=== PATIENT | male | born 2005 | race Hispanic/Latino ===

== ENCOUNTER 2024-01-16 19:14 | Emergency (ER) | payer OTHER ==
[~2024-01-16] VITALS: Ht 175.3 cm; Wt 71.2 kg
[2024-01-16 19:49] LABS: BASO # 0.1 10^3/uL (0.0-0.2); BASO % 0.5 % (0.0-1.0); EOS # 0.2 10^3/uL (0.0-0.5); EOS % 1.6 % (0.0-3.0); HEMATOCRIT 40.6 % (42.0-52.0); HEMOGLOBIN 13.8 g/dl (13.5-17.5); LYMPH # 2.5 10^3/uL (1.5-5.0); LYMPH % 23.8 % (24.0-44.0); MEAN CORPUSCULAR HEMOGLOBIN 29.4 pg (27.0-33.0); MEAN CORPUSCULAR VOLUME 86.4 fl (80.0-96.0); MONO % 9.8 % (2.0-8.0); NEUTROPHILS # 6.7 10^3/uL (1.5-8.5); NEUTROPHILS % 64.1 % (36.0-66.0); PLATELET COUNT, AUTOMATED 220 10^3/uL (150-450); WHITE BLOOD COUNT 10.5 10^3/uL (4.0-10.0)
[2024-01-16 20:18] LABS: LIPASE 37 U/L (12-53)
[2024-01-16 20:20] LABS: ALBUMIN 4.4 G/DL (3.2-5.2); ALKALINE PHOSPHATASE 101 U/L (46-116); ALT/SGPT 46 U/L (7.0-40); AST/SGOT 19 U/L (<34); BILIRUBIN,DIRECT 0.2 MG/DL (<0.4); BILIRUBIN,TOTAL 0.6 MG/DL (0.3-1.2); BLOOD UREA NITROGEN 11 MG/DL (9-23); CALCIUM LEVEL 9.3 MG/DL (8.5-10.1); CARBON DIOXIDE LEVEL 30 MMOL/L (20-31); CHLORIDE LEVEL 102 MMOL/L (98-107); CREATININE FOR GFR 0.92 MG/DL (0.70-1.30); GLUCOSE, FASTING 93 MG/DL (60-100); POTASSIUM SERUM 4.1 MMOL/L (3.5-5.1); SODIUM LEVEL 135 MMOL/L (136-145); TOTAL PROTEIN 7.7 G/DL (5.7-8.2)
[2024-01-16 20:27] LABS: RSV AMPLIFICATION NEGATIVE (NEGATIVE)
[2024-01-16] MEDS: ACETAMINOPHEN TAB 650MG DOSE (2X325MG) PO ONE (23:30)
[2024-01-17] MEDS ORDERED: ACETAMINOPHEN *IV* 1,000 MG in IV 1 EA IV ONE (01:10)
[2024-01-17] MEDS ORDERED: ISOVUE-370 76% 100ML VIAL As Ordered ONE (01:14)
[2024-01-17] MEDS: KETOROLAC 30 MG/ML 1ML VIAL IV ONE (01:48)
[2024-01-17 02:25] LABS: MONO SCRN NEGATIVE (NEGATIVE)
[2024-01-17 03:15] VITALS: BP 137/94; TEMP 99; O2SAT 98
== END 2024-01-17 03:16 | disposition home or self-care (01) ==
LOC: M ED 19:14
DX: R50.9 Fever, unspecified (principal); R59.0 Localized enlarged lymph nodes
CPT/HCPCS: 71275; 74177; 76705; 80048; 80076; 81001; 83690; 85025; 86308; 87040; 87486; 87581; 87631; 87633; 87798; 96374; 99284; J1885; Q9967